=== PATIENT | female | born 1990 | race American Indian/Alaskan Native ===

== ENCOUNTER 2020-12-13 21:52 | Emergency (ER) | payer SELFPAY ==
--- NOTE | 2020-12-13 22:21 | Emergency Department Report ---
HPI - General Time Seen by Provider: 12/13/20 22:08 - HPI HPI: This is a 30-year-old -[place] female presents to the emergency department via EMS for a mental health evaluation. EMS contacted me prearrival to discuss whether or not the patient needed to be brought to the emergency department. Apparently the [place] was [place] the side of the highway [place] [address] It is not known if the patient was acting erratically, but there was something going on concerning enough for cars that were passing by to call 911. The police arrived at the scene first and then called for EMS. When PD arrived the patient had locked herself in her car and was refusing to answer any questions. This went on for about 45 minutes until PD was eventually able to get her to hold on her window. Per EMS, the patient was exhibiting some labile behavior. 1 minute the patient appeared lucid, and the next she was having some crying spells and inappropriate laughter. EMS also says that the patient's boyfriend showed up at the scene and says that she has been acting "weird", like she is currently, since last night. At this point EMS called me to discuss bring the patient into the emergency department. They were able to coax her into coming in without any medication or sedation for this evaluation. Upon arrival here, the patient admits to episodes of brief psychotic breakdowns. Patient denies any suicidal or homicidal ideations and denies any current hallucinations. The patient's children are currently with their aunt, the patient's sister. EMS also says that the patient's mother called saying that the patient does have some type of psychiatric history for which she is on medications but unknown compliance. ED Past Medical Hx - Social History Smoking Status: Never Smoker Substance Use Type: Alcohol ED Review of Systems ROS: Stated complaint: AMS-PSYCHOSIS Other details as noted in HPI Comment: All other systems reviewed and negative Constitutional: denies: chills, fever Eyes: denies: eye pain, vision change ENT: denies: ear pain, throat pain Respiratory: denies: cough, shortness of breath Cardiovascular: denies: chest pain, palpitations Gastrointestinal: denies: abdominal pain, vomiting Genitourinary: denies: dysuria, discharge Musculoskeletal: denies: back pain, arthralgia Neurological: denies: headache, weakness Psychiatric: denies: auditory hallucinations, visual hallucinations, homicidal thoughts, suicidal thoughts Physical Exam - Physical Exam Physical Exam: GENERAL: The patient is well-developed well-nourished. HENT: Normocephalic. Atraumatic. Patient has moist mucous membranes. EYES: Extraocular motions are intact. NECK: Supple. Trachea is midline. CHEST/LUNGS: Clear to auscultation. There is no respiratory distress noted. HEART/CARDIOVASCULAR: Regular. There is no tachycardia. There is no murmur. ABDOMEN: Abdomen is soft, nontender. Patient has normal bowel sounds. There is no abdominal distention. SKIN: Skin is warm and dry. NEURO: The patient is awake, alert, and oriented. The patient has no focal neurologic deficits. Normal speech. MUSCULOSKELETAL: There is no tenderness or deformity. There is no limitation range of motion. PSYCH: Patient is emotionally labile. She goes in between being calm, inappropriate laughter, and being tearful. She appears to have some fits of anger. ED Course - Consultations Consultation #1: 12/13/20 22:56 Patient was seen by the psychiatric machine maintenance servicer, Ragini, who agrees that the patient is exhibiting some psychosis and the patient should be made a 1013 and an ED hold. While being assessed by Ragini the patient began saying things like "I am going to kill God and the devil", as well as "I am going to kill everybody." She also was exhibiting some inappropriate laughter and then suddenly would start crying. A 1013 has been filled out and placed on the chart. ED Medical Decision Making - Lab Data Result diagrams: 12/13/20 22:33 12/13/20 22:33 Lab Results 12/13/20 12/13/20 12/13/20 Range/Units 22:33 22:33 22:33 WBC 7.4 (4.5-11.0) K/mm3 RBC 4.10 (3.65-5.03) M/mm3 Hgb 12.3 (10.1-14.3) gm/dl Hct 35.8 (30.3-42.9) % MCV 87 (79-97) fl MCH 30 (28-32) pg MCHC 34 (30-34) % RDW 14.7 (13.2-15.2) % Plt Count 208 (140-440) K/mm3 Lymph % (Auto) 22.6 (13.4-35.0) % [place] % (Auto) 8.0 H (0.0-7.3) % Eos % (Auto) 0.0 (0.0-4.3) % Baso % (Auto) 0.4 (0.0-1.8) % Lymph # (Auto) 1.7 (1.2-5.4) K/mm3 [place] # (Auto) 0.6 (0.0-0.8) K/mm3 Eos # (Auto) 0.0 (0.0-0.4) K/mm3 Baso # (Auto) 0.0 (0.0-0.1) K/mm3 Seg Neutrophils % 69.0 (40.0-70.0) % Seg Neutrophils # 5.1 (1.8-7.7) K/mm3 Sodium 142 (137-145) mmol/L Potassium 3.2 L (3.6-5.0) mmol/L Chloride 105.6 (98-107) mmol/L Carbon Dioxide 21 L (22-30) mmol/L Anion Gap 19 mmol/L BUN 10 (7-17) mg/dL Creatinine 0.7 (0.6-1.2) mg/dL Estimated GFR > 60 ml/min BUN/Creatinine Ratio 14 % Glucose 102 H (65-100) mg/dL Calcium 9.5 (8.4-10.2) mg/dL HCG, Qual (Negative) Urine Color (Yellow) Urine Turbidity (Clear) Urine pH (5.0-7.0) Ur Specific [place] (1.003-1.030) Urine Protein (Negative) mg/dL Urine Glucose (UA) (Negative) mg/dL Urine Ketones (Negative) mg/dL Urine Blood (Negative) Urine Nitrite (Negative) Urine Bilirubin (Negative) Urine Urobilinogen (<2.0) mg/dL Ur Leukocyte Esterase (Negative) Urine WBC (Auto) (0.0-6.0) /HPF Urine RBC (Auto) (0.0-6.0) /HPF U Epithel Cells (Auto) (0-13.0) /HPF Urine Bacteria (Auto) (Negative) /HPF Urine Mucus /HPF Urine Opiates Screen Urine Methadone Screen Ur Barbiturates Screen Ur Phencyclidine Scrn Ur Amphetamines Screen U Benzodiazepines Scrn Urine Cocaine Screen U Marijuana (THC) Screen Drugs of Abuse Note Plasma/Serum Alcohol < 0.01 (0-0.07) % 12/13/20 12/13/20 12/13/20 Range/Units 22:33 Unknown Unknown WBC (4.5-11.0) K/mm3 RBC (3.65-5.03) M/mm3 Hgb (10.1-14.3) gm/dl Hct (30.3-42.9) % MCV (79-97) fl MCH (28-32) pg MCHC (30-34) % RDW (13.2-15.2) % Plt Count (140-440) K/mm3 Lymph % (Auto) (13.4-35.0) % [place] % (Auto) (0.0-7.3) % Eos % (Auto) (0.0-4.3) % Baso % (Auto) (0.0-1.8) % Lymph # (Auto) (1.2-5.4) K/mm3 [place] # (Auto) (0.0-0.8) K/mm3 Eos # (Auto) (0.0-0.4) K/mm3 Baso # (Auto) (0.0-0.1) K/mm3 Seg Neutrophils % (40.0-70.0) % Seg Neutrophils # (1.8-7.7) K/mm3 Sodium (137-145) mmol/L Potassium (3.6-5.0) mmol/L Chloride (98-107) mmol/L Carbon Dioxide (22-30) mmol/L Anion Gap mmol/L BUN (7-17) mg/dL Creatinine (0.6-1.2) mg/dL Estimated GFR ml/min BUN/Creatinine Ratio % Glucose (65-100) mg/dL Calcium (8.4-10.2) mg/dL HCG, Qual Negative (Negative) Urine Color [place] (Yellow) Urine Turbidity Turbid (Clear) Urine pH 7.0 (5.0-7.0) Ur Specific [place] 1.031 H (1.003-1.030) Urine Protein 100 mg/dl (Negative) mg/dL Urine Glucose (UA) Neg (Negative) mg/dL Urine Ketones Tr (Negative) mg/dL Urine Blood Neg (Negative) Urine Nitrite Neg (Negative) Urine Bilirubin Neg (Negative) Urine Urobilinogen 4.0 (<2.0) mg/dL Ur Leukocyte Esterase Sm (Negative) Urine WBC (Auto) 14.0 H (0.0-6.0) /HPF Urine RBC (Auto) 3.0 (0.0-6.0) /HPF U Epithel Cells (Auto) 139.0 H (0-13.0) /HPF Urine Bacteria (Auto) 1+ (Negative) /HPF Urine Mucus 3+ /HPF Urine Opiates Screen Presumptive negative Urine Methadone Screen Presumptive negative Ur Barbiturates Screen Presumptive negative Ur Phencyclidine Scrn Presumptive negative Ur Amphetamines Screen Presumptive negative U Benzodiazepines Scrn Presumptive negative Urine Cocaine Screen Presumptive negative U Marijuana (THC) Screen Presumptive positive Drugs of Abuse Note Disclamer Plasma/Serum Alcohol (0-0.07) % - Medical Decision Making This patient was brought in by EMS after she was seen on the side of a highway exit ramp with her kids. Initially the concern was whether or not this patient needed inpatient stabilization as she is able to answer orientation questions appropriately. However, the patient is unable to explain the reason for being on the side of a highway with her children. She has been exhibiting some labile behavior showing some outbursts of anger, inappropriate laughter and sometimes being tearful. Patient was seen by the psychiatric machine maintenance servicer where she started having some tangential thoughts/speech and made some threats of violence. From the collateral information obtained by family, it appears that the patient does have a previous history of schizophrenia but has not been compliant with her medications. Apparently the patient has been exhibiting some abnormal behavior since last night when she had an argument with her significant other. Even after the psychiatric assessment, the patient continues to have some psychiatric decompensation. She is yelling at the top of her lungs and banging on doors and windows. She was given a dose of Geodon and since that time has been resting comfortably. Patient's labs have been mostly unremarkable including CBC, metabolic panel, UDS, urinalysis, blood alcohol level. She does have hypokalemia for which she will be given a dose of potassium chloride. She has a mild urinary tract infection for which she has been started on Macrobid. Vital signs reassuring throughout her ED course thus far including being afebrile. Patient is medically cleared for psychiatric placement. Critical Care Time: No Critical care attestation.: If time is entered above; I have spent that time in minutes in the direct care of this critically ill patient, excluding procedure time. ED Disposition Clinical Impression: Acute psychosis Disposition: DC/TX-65 PSY HOSP/PSY UNIT Is pt being admited?: No Condition: Stable Time of Disposition: 04:56
[2020-12-13 22:56] LABS: Basophils % (Auto) 0.4 % (0.0-1.8); Hematocrit 35.8 % (30.3-42.9); Hemoglobin 12.3 gm/dl (10.1-14.3); Lymphocytes # (Auto) 1.7 K/mm3 (1.2-5.4); Lymphocytes % (Auto) 22.6 % (13.4-35.0); Mean Corpuscular HGB Conc 34 % (30-34); Mean Corpuscular Volume 87 fl (79-97); Monocytes # (Auto) 0.6 K/mm3 (0.0-0.8); Platelet Count 208 K/mm3 (140-440); Red Cell Distribution Width 14.7 % (13.2-15.2)
[2020-12-13 23:06] LABS: Blood Urea Nitrogen 10 mg/dL (7-17); Calcium 9.5 mg/dL (8.4-10.2); Hemolysis Index 2
[2020-12-13 23:19] LABS: BUN/Creatinine Ratio 14
[2020-12-13] MEDS ORDERED: POTASSIUM CHLORIDE ER 20 MEQ TAB PO ONE (23:38)
[2020-12-14] MEDS: ZIPRASIDONE MESYLATE 20 MG VIAL IM ONE ×2 (00:05→00:06)
[2020-12-14 00:25] LABS: Bacteria,Urine 1+ /HPF (Negative); Bilirubin,Urine NEG (Negative); Blood,Urine NEG (Negative); Color,Urine Amber (Yellow); Mucus,Urine 3+ /HPF
[2020-12-14 00:31] LABS: Amphetamine Screen,Urine PRESUMPTIVE NEGATIVE; Benzodiazepines Screen,Urine PRESUMPTIVE NEGATIVE; Cannabinoid Screen,Urine PRESUMPTIVE POSITIVE; Cocaine Screen,Urine PRESUMPTIVE NEGATIVE; Methadone Screen,Urine PRESUMPTIVE NEGATIVE; Opiate Screen,Urine PRESUMPTIVE NEGATIVE
[2020-12-14] MEDS ORDERED: POTASSIUM CHLORIDE ER 20 MEQ TAB PO ONE (09:44)
[2020-12-14] MEDS: NITROFURANTOIN MONOHYD/M-CRYST 100 MG CAP PO SCH ×2 (09:49→22:42)
--- NOTE | 2020-12-14 10:16 | Event Note ---
S: sleeping O: NAD, stable vital signs A: acute psychosis, marijuana use P: Patient is medically clear for psychiatric care. Awaiting mental health treatment recommendations. Antibiotic for UTI ordered. Oral potassium replacement ordered
--- NOTE | 2020-12-14 10:59 | Consultation ---
History of Present Illness - Reason for Consult Consult date: 12/14/20 Reason for consult: psychosis - History of Present Psychiatric Illness Per ER Note: This is a 30-year-old -[place] female presents to the emergency department via EMS for a mental health evaluation. EMS contacted me prearrival to discuss whether or not the patient needed to be brought to the emergency department. Apparently the patient was seen on the side of the highway [place] [address]. It is not known if the patient was acting erratically, but there was something going on concerning enough for cars that were passing by to call 911. The police arrived at the scene first and then called for EMS. When PD arrived the patient had locked herself in her car and was refusing to answer any questions. This went on for about 45 minutes until PD was eventually able to get her to hold on her window. Per EMS, the patient was exhibiting some labile behavior. 1 minute the patient appeared lucid, and the next she was having some crying spells and inappropriate laughter. EMS also says that the patient's boyfriend showed up at the scene and says that she has b een acting "weird", like she is currently, since last night. At this point EMS called me to discuss bring the patient into the emergency department. They were able to coax her into coming in without any medication or sedation for this evaluation. Upon arrival here, the patient admits to episodes of brief psychotic breakdowns. Patient denies any suicidal or homicidal ideations and denies any current hallucinations. The patient's children are currently with their aunt, the patient's sister. EMS also says that the patient's mother called saying that the patient does have some type of psychiatric history for which she is on medications but unknown compliance. During my interview with 30y/o Steven Rebolledo, the patient is anxious, sobbing, she is acutely psychotic. Her thought process is disorganized at times. She is on the phone with her sister, Marimar, who she allows me to speak to. Her sister could not give a lot of information but says she would have her mother call. The nurses on duty states the patient [place] two [place] children. When asking the patient this, she says "I was only trying to get them to listen. They kept jumping in and out of the truck, in the back seat, in the truck and out of their car seats." She says "I wanted to them stop it and listen." The patient then says "I got them out and we were walking behind the truck and people kept blowing." The patient says "one of my kids were even trying to run into the streets and I just want them to stop." The patient says she's stressed and overwhelmed. She then starts raising her voice in a frustrated tone, "I wish all my children were here even the one I had a miscarriage of. I want them all to have a conversation and not think they are better than the other one because that is not true." She denies SI/HI, states loudly "I would never do that. I love my children all of them. I want them to talk about it. We all need to talk about it." She starts sobbing uncontrollably again and asks me for a hug. The patient says she stopped taking her medica tions. Her mother called while I was with the patient. The patient allowed me to talk to her. The patient's mother says when she gets over whelmed she has these breaks. She also confirmed that the patient had been off her medications but she was unsure of what they were. She says Steven doesn't like to ask for help. PAST PSYCHIATRIC HISTORY: Unable to assess PAST MEDICAL HISTORY: None reported Family Psychiatric History: None reported or documented SOCIAL HISTORY Unable to assess REVIEW OF SYSTEMS Unable to assess MENTAL STATUS EXAMINATION General Appearance: Dressed appropriately Behavior: anxious, ranting, crying uncontrollably. good eye contact Mood: stressed and overwhelmed Affect and affective range: sobbing Thought Process: illogical, flight of ideas Speech: nonsensical Thought Content: Suicidal Ideation: Denies Homicidal Ideation: Denies Hallucinations: Denies Delusions: Yes Insight and Judgment: Impaired Memory/Cognition: Impaired Attention: Divided RECOMMENDATIONS 1013 Start Olanzapine 5mg po daily Start Prozac 10mg po daily Start Trazodone 50mg po qhs Start Vistaril 25mg po BID Risks, benefits and alternatives of medications discussed with the patient, questions answered and consent obtained from patient. PSYCHOTHERAPY: Supportive psychotherapy provided MEDICAL: Per primary team DELIRIUM PRECAUTIONS: Please re-orient patient frequently, keep lights on during the day, and minimize benzodiazepines and opiates as these medications could worsen patient's confusion. MANAGER WINTER: Per medical team DISPOSITION: Recommend acute inpatient psychiatric hospitalization at this time Thank you for the consult. Please contact with any questions and/or concerns. Will follow. Case discussed with Dr. Castellanos Medications and Allergies Allergies Allergy/AdvReac Type Severity Reaction Status Date / Time Penicillins Allergy Swelling Verified 01/06/15 21:15 Active Meds: Active Medications Nitrofurantoin Macrocrystals (Nitrofurantoin Monohyd/M-Cryst 100 Mg Cap) 100 mg PO Q12HR AWA Last Admin: 12/14/20 09:49 Dose: 100 mg Documented by: Mental Status Exam - Vital signs Last Vital Signs Temp 98.6 F 12/14/20 06:29 Pulse 80 12/14/20 06:29 Resp 16 12/14/20 06:29 BP 121/76 12/14/20 06:29 Pulse Ox 99 12/14/20 06:29 Results Result Diagrams: 12/13/20 22:33 12/13/20 22:33 Abnormal lab results 12/13/20 12/13/20 12/13/20 Range/Units 22:33 22:33 Unknown [place] % (Auto) 8.0 H (0.0-7.3) % Potassium 3.2 L (3.6-5.0) mmol/L Carbon Dioxide 21 L (22-30) mmol/L Glucose 102 H (65-100) mg/dL Ur Specific [place] 1.031 H (1.003-1.030) Urine WBC (Auto) 14.0 H (0.0-6.0) /HPF U Epithel Cells (Auto) 139.0 H (0-13.0) /HPF All other labs normal.
[2020-12-14] MEDS: hydrOXYzine PAMOATE 25 MG CAP PO SCH ×2 (15:12→22:42)
[2020-12-14] MEDS: FLUoxetine 10 MG TAB PO SCH (15:12)
[2020-12-14] MEDS ORDERED: traZODone 50 MG TAB PO SCH (22:00)
[2020-12-15 08:02] VITALS: BP 122/79
[2020-12-15] MEDS: FLUoxetine 10 MG TAB PO SCH (10:21)
[2020-12-15] MEDS: hydrOXYzine PAMOATE 25 MG CAP PO SCH (10:21)
[2020-12-15] MEDS: NITROFURANTOIN MONOHYD/M-CRYST 100 MG CAP PO SCH (10:21)
--- NOTE | 2020-12-15 10:36 | Emergency Department Report ---
Blank Doc - Documentation Documentation: Patient is sleeping in no acute distress. Vital signs stable. Labs reviewed and showed a potassium of 3.2 however patient received K. Dur. Plan is to recheck potassium.
--- NOTE | 2020-12-15 11:33 | Progress Note ---
Subjective - Reason for Consult Consult date: 12/15/20 Reason for consult: psychosis - Chief Complaint Chief complaint: The patient was seen today, she is anxious and breathing hard. She says "I feel a little better." She then says "I feel like I can make it and then I feel like I can't." She denies SI/HI, but did not respond when asking about hallucinations. She then just continues to breath hard and doesn't answer any more questions. The nurse is called to her. REVIEW OF SYSTEMS Unable to assess MENTAL STATUS EXAMINATION General Appearance: Dressed appropriately Behavior: anxious Mood: better Affect and affective range: restricted, stressed Thought Process: illogical Speech: normal tone and pace Thought Content: Suicidal Ideation: Denies Homicidal Ideation: Denies Hallucinations: Yes Delusions: Yes Insight and Judgment: Impaired Memory/Cognition: Impaired Attention: Divided RECOMMENDATIONS 1013 Increase Olanzapine 7.5mg po daily Continue Prozac 10mg po daily Continue Trazodone 50mg po qhs Continue Vistaril 25mg po BID Risks, benefits and alternatives of medications discussed with the patient, questions answered and consent obtained from patient. PSYCHOTHERAPY: Supportive psychotherapy provided MEDICAL: Per primary team DELIRIUM PRECAUTIONS: Please re-orient patient frequently, keep lights on during the day, and minimize benzodiazepines and opiates as these medications could worsen patient's confusion. LOSS PREVENTION RESEARCH ENGINEER: Per medical team DISPOSITION: Recommend acute inpatient psychiatric hospitalization at this time Thank you for the consult. Please contact with any questions and/or concerns. Will follow. Case discussed with Dr. Castellanos Mental Status Exam - Vital signs Last Vital Signs Temp 98.0 F 12/15/20 08:02 Pulse 61 12/15/20 08:02 Resp 20 12/15/20 08:02 BP 122/79 12/15/20 08:02 Pulse Ox 98 12/15/20 08:02
== END 2020-12-15 18:27 ==
LOC: ED 21:52
DX: F23 Brief psychotic disorder (principal); Z20.822 Contact with and (suspected) exposure to COVID-19; Z79.899 Other long term (current) drug therapy; Z88.0 Allergy status to penicillin
CPT/HCPCS: 36415; 80048; 80307; 81001; 84132; 84703; 85025; 87086; 96372; 99285; J3486; Q0177; U0003; 80320; G0480